=== PATIENT | female | born 1990 | race Caucasian/White ===

== ENCOUNTER 2018-03-09 15:50 | Inpatient (IN) | payer BC, SELFPAY ==
[2018-03-09 16:18] VITALS: BMI 22.6
[2018-03-09] MEDS: Lactated Ringers 1,000 ML 50 ML IV (16:30)
--- NOTE | 2018-03-09 16:35 | HP.PCM_ITS ---
- Problem List (1) Hypothyroidism Status: Acute (2) Rh negative status during Status: Acute (3) History of bicornuate uterus Status: Acute (4) Late care affecting Status: Acute History Date of Admission: 03/09/18 Final RAMANA: 03/16/18 Final RAMANA Source: LMP Gestational age: 39 Weeks and 0 Days History of this : This is a 27 year-old, G [5], P [2103], at weeks gestational age in active labor. Presented for PN visit today. Membranes stipped and no contractions. After appointment patient contractions increased to every 5 minutes and rating pain 7/10. Allergies No Known Allergies Allergy (Verified 06/10/16 15:41) Home Medications: Home Medications Levothyroxine [Synthroid] 112 mcg PO DAILY 06/10/16 Vits [Prenatabs FA] 1 tablet PO DAILY 06/10/16 Ferrous Sulfate [Slow Fe] 142 mg PO BID #60 tablet.er 06/12/16 Naproxen [Naprosyn] 250 - 500 mg PO Q8H PRN PRN #30 tablet 06/12/16 Smoking Status: Former smoker Alcohol: None Heart Tracin moderate variability, accels, no decels, Category 1 TOCO Analysis: Every 3-4 minutes, moderate, 60 seconds History Past Pregnancies: Past Pregnancies Delivery Date Name GA/Weeks Outcome Route Weight Gender Labor Length Anesthesia Delivery Location Provider FOB Labs: GC/CT negative Urine tox screen negative GBS negative Review of Systems Constitutional: Denies: Chills, Fever, Weight Change HEENT: Denies: Head Aches, Sinus Congestion, Sinus Drainage Cardiovascular: Denies: Chest Pain, Palpitations Respiratory: Denies: Cough, Shortness of breath at rest, Sputum production Gastrointestinal: Reports: Abdominal Pain. Denies: Nausea, Vomiting Genitourinary: Denies: Dysuria Neurological: Denies: Numbness, Tingling, Focal weakness Psychiatric: Denies: Anxiety, Depression, Homicidal Ideations, Suicidal Idea tions Physical Exam General: Alert, Oriented x3 HEENT: Atraumatic, Normocephalic Cardiovascular: Regular rate, Regular Rhythm, No murmurs Lungs: Clear to auscultation, No rhonchi, No wheeze Abdomen: Gravid Extremities:: No edema Neurological: Deep Tendon Reflexes 2+/4 and Symmetrical. Negative for: Clonus Estimated gestational size: Appropriate for gestational size Presentation: Cephalic Cervix Dilation (cm): 5 Station: 0 Effacement (%): 60 Assessment/Plan All Active Problems (This Medical Record has been edited. Action required.) Hypothyroidism (Acute) Rh negative status during (Acute) History of bicornuate uterus (Acute) Late care affecting (Acute) This is a 27 year-old, G [3], P [2103], at 39w0d weeks gestational age. Active Labor Categroy 1 FHT P: 1) Admit for active labor. IV, saline lock 2) Intermittent monitoring after reactive strip 3) Discussed AROM vs. awaiting spontaneous, ok with AROM 4) notified of patient status and delivery 5) Awaiting labs, requested fax. Sarita Friend APRN, CNM
[2018-03-09 16:56] LABS: Hematocrit 36.5 % (37-47); Hemoglobin 12.2 g/dl (12.0-15.0); Mean Corp Hgb Conc 33.4 g/gl (32-36); Mean Corpuscular Hgb 31.2 pg (27.0-32.0); Mean Corpuscular Volume 93.4 fL (81-99); Mean Platelet Vol. 12.5 fl (6.2-12.0); Platelet Count 201 K/mm3 (150-450); RBC Distribution Width CV 13.8 % (11.6-14.6); RBC Distribution Width SD 45.7 fl (35.1-43.9); Red Blood Count 3.91 M/mm3 (4.2-5.4); White Blood Count 13.6 K/mm3 (4.4-11.0)
[2018-03-09 17:03] LABS: Scan Indicated on CBC? Y/N NO
[2018-03-09] MEDS: Oxytocin 30 units/NS 500 ml 30 UNITS/500 ML IV.SOLN 334 UNITS IV (17:48)
--- NOTE | 2018-03-09 17:56 | PCM.OB.VAG ---
- Problem List (1) Hypothyroidism Status: Acute (2) Rh negative status during Status: Acute (3) History of bicornuate uterus Status: Acute (4) Late care affecting Status: Acute Vaginal Delivery Maternal Presentation: Active Labor Amniotic Membrane Rupture Type: Artificial Amniotic Fluid Description: Clear Final RAMANA: 03/16/18 Gestational age: 39 Weeks and 0 Days Date of Procedure: 03/09/18 Pre-Operative Diagnosis: Active Labor Post-Operative Diagnosis: Surgery/ Procedure Performed: Spontaneous Vaginal Delivery Type of Anesthesia: None Description of Procedure: Progressed to complete with urge to push. of viable male over intact perineum. APGARS 9,9. delivered with CAN, delivered through. Placed on maternal abdomen, mouth and nares suctioned for secretions. Spontaneous cry. Cord clamped and cut after pulsations ceased. Pitocin started for active 3rd stage management. Placenta delivered via maternal effort, intact, 3vessel cord. Perineum inspected and intact. EBL 100ml. Planning to bottle feed. Mom and baby stable. notified of delivery. Presentation: Vertex Placental Delivery Description: Spontaneous Placenta Disposition: [facility] Cord Vessel Description: 3 Vessels Cord Entanglement: Around neck x 1, loose Estimated Blood Loss: 100ml Infant A gender: Male (1 minute): 9 (5 minute): 9 Episiotomy Description: None Laceration: None Medications given after delivery: IV Pitocin Complications: None
--- NOTE | 2018-03-09 18:00 | OP.PCM_ITS ---
- Problem List (1) Hypothyroidism Status: Acute (2) Rh negative status during Status: Acute (3) History of bicornuate uterus Status: Acute (4) Late care affecting Status: Acute Vaginal Delivery Maternal Presentation: Active Labor Amniotic Membrane Rupture Type: Artificial Amniotic Fluid Description: Clear Final RAMANA: 03/16/18 Gestational age: 39 Weeks and 0 Days Date of Procedure: 03/09/18 Pre-Operative Diagnosis: Active Labor Post-Operative Diagnosis: Surgery/ Procedure Performed: Spontaneous Vaginal Delivery Type of Anesthesia: None Description of Procedure: Progressed to complete with urge to push. of viable male over intact perineum. APGARS 9,9. delivered with CAN, delivered through. Placed on maternal abdomen, mouth and nares suctioned for secretions. Spontaneous cry. Cord clamped and cut after pulsations ceased. Pitocin started for active 3rd s tage management. Placenta delivered via maternal effort, intact, 3vessel cord. Perineum inspected and intact. EBL 100ml. Planning to bottle feed. Mom and baby stable. notified of delivery. Presentation: Vertex Placental Delivery Description: Spontaneous Placenta Disposition: [facility] Cord Vessel Description: 3 Vessels Cord Entanglement: Around neck x 1, loose Estimated Blood Loss: 100ml A gender: Male (1 minute): 9 (5 minute): 9 Episiotomy Description: None Laceration: None Medications given after delivery: IV Pitocin Complications: None
[2018-03-09] MEDS: Oxytocin 30 units/NS 500 ml 30 UNITS/500 ML IV.SOLN 167 UNITS IV (18:18)
[2018-03-10] VITALS: BP 107/61; PULSE 67; RESP 18; TEMP 37.2; O2SAT 96
[2018-03-10 04:00] VITALS: BP 102/58; PULSE 52; RESP 18; TEMP 37.2; O2SAT 96
[2018-03-10] MEDS: Levothyroxine 112 MCG Tablet PO (05:59)
[2018-03-10 08:30] VITALS: BP 107/65; PULSE 68; RESP 16; TEMP 36.7; O2SAT 96
--- NOTE | 2018-03-10 08:41 | PCM.PN.OB ---
Patient Problems: Active and Suspected Problems (This Medical Record has been edited. Action required.) Hypothyroidism (Acute) Rh negative status during (Acute) History of bicornuate uterus (Acute) Late care affecting (Acute) Subjective: pt seen at bedside, doing well. pt reports mild lochia. Pain well controlled. bottle feeding. Voiding w/o difficulty. - Physical Exam General: Alert, Oriented x3 Abdomen: Soft, Non Tender, - - fundus firm Extremities: No Calf Tenderness Vital Signs Temp Pulse Resp BP Pulse Ox 98.9 F 52 L 18 102/58 L 96 03/10/18 04:00 03/10/18 04:00 03/10/18 04:00 03/10/18 04:00 03/10/18 04:00 Oxygen Delivery Method Room Air Weight: 75.75 kg Body Mass Index (BMI) 22.6 Intake and Output for Last 24 Hours 03/08/18 03/09/18 03/10/18 23:59 23:59 23:59 Output Total 400 / 400 350 / 350 Balance -400 / -400 -350 / -350 Laboratory Tests Past 24 Hrs 03/09/18 03/09/18 03/09/18 16:30 16:30 16:30 WBC 13.6 H RBC 3.91 L Hgb 12.2 Hct 36.5 L MCV 93.4 MCH 31.2 MCHC 33.4 RDW 13.8 RDW Differential 45.7 H Plt Count 201 MPV 12.5 H Blood Type O NEGATIVE Antibody Screen TNP NEGATIVE Medical Necessity - Tobacco Use Smoking Status: Former smoker Assessment/Plan All Active Problems (This Medical Record has been edited. Action required.) Hypothyroidism (Acute) Rh negative status during (Acute) History of bicornuate uterus (Acute) Late care affecting (Acute) PPD#1, doing well routine care pain mgmt dc at 24hrs if baby discharged - pt request
--- NOTE | 2018-03-10 08:44 | DCINST_ITS ---
Discharge Diet: No Restrictions Discharge Activity: Return to Normal Activity, May not drive while taking narcotic pain medications., May Shower May resume sexual activity in: 4-6 weeks Additional Activity Instructions:: Nothing in the vagina for 4-6 weeks. You may return to work/school in 6 weeks. Call your doctor if your incision/area has: Continuous Slow Oozing, Sudden Increased Bleeding, Increased Pain/ Swelling, Increased Redness, Foul Smelling Discharge Additional Instructions: If you experience any of the following, contact your healthcare provider. * Bleeding that soaks a pad every hour for 2 hours * Fever 100.4 or higher * Unrelieved incision or abdominal pain * Swelling, redness, discharge or bleeding from your incision or episiotomy site * Your incision begins to separate * Problems urinating (including inability to urinate or burning while urinating). * Visual changes * Severe headache * Flu-like symptoms * Pain or redness in one of both of your breasts * Pain, warmth, tenderness or swelling in your legs, especially the calf area * Frequent nausea and vomiting * Symptoms of depression or anxiety If you experience any of the following, call 911 or go to the nearest Emergency Room. * Chest pain * Problems breathing * Seizure activity * Partial or complete paralysis of a body part, slurred speech, weakness or drooping of the face, or a sudden inability to walk or hold your balance Allergies/Adverse Reactions: Allergies No Known Allergies Allergy (Verified 03/09/18 18:16) Medications to take at Discharge Levothyroxine [Synthroid] 112 mcg PO DAILY 06/10/16 Vits [Prenatabs FA ] 1 tablet PO DAILY 06/10/16 Ibuprofen 600 mg PO 4X/DAY PRN PRN #30 tablet 03/10/18 Levothyroxine [Synthroid] 112 mcg PO DAILY@0600 tablet 03/10/18 The following prescriptions were given: Ibuprofen 600 mg PO 4X/DAY PRN PRN #30 tablet PRN Reason: Pain When: Call to make an appointment with your doctor in 6 weeks. If you had elevated Blood Pressure or 4th degree laceration you will need to be seen in 2 weeks. Primary Care Physician: Ponce Kidd MD [Primary Care Provider] - Test Results: Test results from this visit will be discussed in further detail at your follow- up appointment, if applicable.
[2018-03-10 12:05] VITALS: BP 105/72; PULSE 74; RESP 16; TEMP 36.9; O2SAT 97
[2018-03-10 16:05] VITALS: BP 107/60; PULSE 68; RESP 14; TEMP 36.9; O2SAT 95
== END 2018-03-10 19:10 | disposition home or self-care (01) | DRG 806 ==
LOC: WPOUT 16:19 → WP 16:20
PROVIDERS: Advanced Practice Midwife; Admitting Provider Obstetrics & Gynecology; Family Provider Family Medicine; PCP Family Medicine; Referring Provider Obstetrics & Gynecology; Visit Provider Obstetrics & Gynecology
DX: O99.284 Endocrine, nutritional and metabolic diseases complicating childbirth (principal); O36.0130 Maternal care for anti-D [Rh] antibodies, third trimester, not applicable or unspecified; Z37.0 Single live birth; O69.81X0 Labor and delivery complicated by cord around neck, without compression, not applicable or unspecified; E03.9 Hypothyroidism, unspecified; Z3A.39 39 weeks gestation of pregnancy; Z87.891 Personal history of nicotine dependence; Z87.59 Personal history of other complications of pregnancy, childbirth and the puerperium
CPT/HCPCS: 59025; 59050; 85027; 86850; 86900; 99218; J7120; A4216; G0378

== ENCOUNTER 2018-04-26 11:59 | Day surgery (SDC) | payer BC, SELFPAY ==
[2018-04-26 12:21] VITALS: BP 108/78; PULSE 66; RESP 14; TEMP 36.8; O2SAT 97; BMI 18.9
[2018-04-26 12:32] LABS: Hematocrit 39.3 % (37-47); Mean Corp Hgb Conc 33.1 g/gl (32-36); Mean Corpuscular Hgb 30.1 pg (27.0-32.0); Mean Platelet Vol. 12.9 fl (6.2-12.0); Platelet Count 174 K/mm3 (150-450); RBC Distribution Width CV 12.6 % (11.6-14.6); RBC Distribution Width SD 42.4 fl (35.1-43.9); Red Blood Count 4.32 M/mm3 (4.2-5.4); White Blood Count 6.9 K/mm3 (4.4-11.0)
[2018-04-26 12:32] LABS: Internal QC Validated? YES +Cl - CLEAR BKGD
[2018-04-26 12:34] LABS: Scan Indicated on CBC? Y/N NO
[2018-04-26 12:36] LABS: Pregnancy, Urine Negative Negative
--- NOTE | 2018-04-26 13:06 | DCINST_ITS ---
Discharge Diet: No Restrictions, - - Increase fluid intake for 48 hours. Discharge Activity: Return to Normal Activity, May Drive - when you are no longer taking narcotic pain medications., May Shower, May Take a Tub Bath - in 7 days., - - Ambulate often the next week after surgery. Additional Activity Instructions:: Nothing in the vagina for the next 5 days. Call your doctor if your incision/area has: Continuous Slow Oozing, Sudden Increased Bleeding, Increased Pain/ Swelling, Increased Redness, Foul Smelling Discharge, Swelling at the incision site Call your doctor if you observe: Fever of 101 or Higher Allergies/Adverse Reactions: Allergies No Known Allergies Allergy (Verified 04/17/18 11:26) Medications to take at Discharge Levothyroxine [Synthroid] 137 mcg PO DAILY 06/10/16 Amox/Clavulanate Tablet [Augmentin Tablet] 1 tab PO BID 04/26/18 Primary Care Physician: Ponce Kidd MD [Primary Care Provider] - Test Results: Test results from this visit will be discussed in further detail at your follow- up appointment, if applicable.
--- NOTE | 2018-04-26 13:34 | PCM.OPRPT ---
Report of Operation Date of Procedure: 04/26/18 Pre-Operative Diagnosis: desires sterilization Post-Operative Diagnosis: same Description of Surgical Findings:: normal tubes and ovaries bilaterally. no other gross pelvic abnormalities Type of Anesthesia:: General Special Medications: marcaine 0.5% Specimen's removed: Bilateral fallopian tubes Drains: none Estimated Blood Loss (mL): 5 Fluids Replaced: 1000 Description of Procedure: Operative note: After informed consent was obtained patient was taken to the operating room she was placed in supine position she was given anesthesia. She was then placed in the [facility] stirrups and she was prepped and draped in normal sterile fashion. Bladder was drained prior to the start of procedure approximately 50cc of clear yellow urine was expelled. At this time attention was turned to the vaginal portion where weighted speculum placed at posterior fornix vagina single-tooth tenaculum was used to gently grasp the internal the cervix. uterus was gently sounded to approximately 9cm. Uterine manipulator was placed without difficulty. Legs then placed in parallel with the abdomen the tenaculum and the weighted speculum were removed. 2 towel clamps were placed superior to umbilicus. After Marcaine was injected in umbilicus a small incision was made and a 5 mm trocar was placed under direct visualization. CO2 gas was used to insufflate the intra-abdominal cavity. Upon inspection no gross abnormalities uterus tubes and ovaries appeared to be normal. At this time then the RLQ and LLQ ports were placed again Marcaine was injected small incision was made a knife and the 5 mm trocar was placed. At this time then tubes were traced back to the fimbriated ends. Ligasure was used to coagulate and ligate along mesosalpynx bilaterally until tubes removed completely. Good hemostasis was appreciated. At this time procedure was deemed complete successful. The gas was desufflated on from the intra-abdominal cavity. The trochars were removed. Skin was closed using 4-0 Monocryl in a subcutaneous fashion. Dermabond glue was placed. Instrument lap and needle counts were correct ?2. The uterine manipulator was removed. Vaginal sweep was performed it was negative. There were no complications anticipated normal postoperative course for this patient. Grafts/Implants Used: none - Complications none - Admit VTE Documentation VTE Present on Admission: Yes VTE Mechan Device Prophylaxis: SCD's VTE Pharm Prophylaxis ordered?: No
--- NOTE | 2018-04-26 13:35 | FALS_PTH ---
PATIENT: ALEJANDRO FARMER LOC: [facility] U#:[id number] AGE/SX: 27/F ROOM: RE04/26/[address]: Dr. Nakia Bonds, MDDOB: 1990 BED: DIS: 04/26/2018 SPEC #: [id number] RECD: 04/26/18 15:06 STATUS: JM OLE #: [id number] DEIDRA: 04/26/18 13:[address]: Nakia Bonds DEPT: SURGICAL PATHOLOGY RECD BY: Harshad Tolbert ENTERED: 04/27/18 12:17 SP TYPE: FALL TUBES OTHR DR: Dr. Ponce Kidd MD Tissues: Fallopian tube Procedures: Surgery Specimen Level II HEADER OPERATION: Laparoscopic salpingectomy PRE-OP DIAGNOSIS: Sterilization request TISSUE SUBMITTED: Bilateral fallopian tubes MICROSCOPIC DIAGNOSIS Bilateral fallopian tubes, salpingectomy: Bilateral fallopian tubes including fimbrial ends, no pathologic diagnosis. BENNY:kaia 04/30/18 MICROSCOPIC DESCRIPTION Slides are reviewed. GROSS DESCRIPTION Received is one container labeled with the patient's name and designated bilateral fallopian tubes. The specimen consists of bilateral fallopian tubes including fimbrial ends measuring 7 cm in length and 0.5 cm in diameter and 6 cm in length and 0.5 cm in diameter. The fallopian tubes are not identified as right or left. Sections reveal unremarkable cut surfaces. One of the fallopian tubes also shows a paratubal cyst filled with clear fluid measuring 0.5 cm in greatest dimension. It Consulting Director sections are submitted in two cassettes as follows: 1 - fallopian tube and paratubal cyst, 2 - second fallopian tube. / BENNY:kaia 04/27/18 TC:4 CPT: 02218 x2
[2018-04-26] MEDS: Bupivacaine Mpf 0.5% 30 ML VIAL (13:37)
[2018-04-26 13:52] VITALS: BP 108/78; BP 117/74; PULSE 98; RESP 16; TEMP 36.6; O2SAT 100
[2018-04-26 14:00] VITALS: BP 108/78; BP 109/75; PULSE 73; RESP 16; O2SAT 100
[2018-04-26 14:15] VITALS: BP 105/73; BP 108/78; PULSE 64; RESP 16; TEMP 36.8; O2SAT 100
[2018-04-26 15:34] VITALS: BP 101/57; BP 108/78; PULSE 60; RESP 16; TEMP 36.8; O2SAT 96
== END 2018-04-26 15:35 | disposition home or self-care (01) ==
LOC: SDC 12:02 → AC 12:18
PROVIDERS: Family Provider Family Medicine; PCP Family Medicine; Referring Provider Obstetrics & Gynecology; Visit Provider Obstetrics & Gynecology
PROC: (CPT 58661; principal; 2018-04-26 13:25)
DX: Z30.2 Encounter for sterilization (principal); E03.9 Hypothyroidism, unspecified; Z87.891 Personal history of nicotine dependence
CPT/HCPCS: 58661; 81025; 85027; 88302; J7120; J2405

== ENCOUNTER 2021-01-15 00:49 | Emergency (ER) | payer OTHER, SELFPAY ==
[2021-01-15 00:51] VITALS: BP 115/78; PULSE 85; RESP 18; TEMP 36.2; O2SAT 100; BMI 19.8
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
--- NOTE | 2021-01-15 01:56 | CT_ITS ---
STUDY: CT CERVICAL SPINE WITHOUT CONTRAST REASON FOR EXAM: Female, 30 years old. Neck pain RADIATION DOSAGE (If Supplied By Facility): CTDIvol = ( 13.38 ) mGy, DLP = ( 264.81 ) mGycm TECHNIQUE: High resolution transaxial imaging was performed without contrast material. Sagittal and coronal images were reconstructed. Individualized dose optimization techniques were used for this CT. COMPARISON: None FINDINGS: Normal craniovertebral junction. Normal anterior atlantoaxial articulation. Normal odontoid process. Normal cervical lordosis. Normal vertebral bodies and posterior osseous elements. C2-3: Normal endplates. Normal disc height and morphology. Normal central canal and intervertebral neuroforamina. C3-4: Normal endplates. Normal disc height and morphology. Normal central canal and intervertebral neuroforamina. C4-5: Normal endplates. Normal disc height and morphology. Normal central canal and intervertebral neuroforamina. C5-6: Normal endplates. Normal disc height and morphology. Normal central canal and intervertebral neuroforamina. C6-7: Normal endplates. Normal disc height and morphology. Normal central canal and intervertebral neuroforamina. C7-T1: Normal endplates. Normal disc height and morphology. Normal central canal and intervertebral neuroforamina. Normal visualized soft tissue structures. Lung apices appear minimal subpleural interstitial changes and scarring with minimal cystic changes. CT/Spine Cervical without Contras IMPRESSION: Normal unenhanced CT examination of the cervical spine. Electronically Signed: Lola Barrera MD at 2:47 EDT , Service support ,
== END 2021-01-15 03:12 | disposition home or self-care (01) ==
PROVIDERS: Emergency Provider Student in an Organized Health Care Education/Training Program; PCP Family Medicine
DX: S16.1XXA Strain of muscle, fascia and tendon at neck level, initial encounter (principal); S40.021A Contusion of right upper arm, initial encounter; V89.2XXA Person injured in unspecified motor-vehicle accident, traffic, initial encounter; Y93.89 Activity, other specified; Y92.9 Unspecified place or not applicable; Y99.0 Civilian activity done for income or pay; E06.3 Autoimmune thyroiditis; F17.210 Nicotine dependence, cigarettes, uncomplicated; Z79.899 Other long term (current) drug therapy
CPT/HCPCS: 72125; 99284